=== PATIENT | female | born 1945 | race Two or more races ===

== ENCOUNTER 2022-12-19 05:30 | Day surgery (SDC) | payer OTHER ==
[~2022-12-19] VITALS: Ht 157.5 cm; Wt 81.6 kg
[~2022-12-19 05:30] MED LIST: AVAPRO300 MG PO; CLONAZEPAM0.5 MG PO; FENOFIBRATE150 MG PO; HYDROCHLOROTHIA25 MG PO; ISOSORBIDE DINIT5 MG PO; LANTUS SOL100 UNIT/1; LIPITOR40 MG PO; NORVASC5 MG PO
[2022-12-19] MEDS ORDERED: KETO10TA2 PO (09:42)
[2022-12-19] MEDS ORDERED: DERMOPLAST PAIN78 GM TOP (09:44)
[2022-12-19] MEDS ORDERED: TRAM1TAB98 PO (09:45)
== END 2022-12-19 13:15 | disposition home or self-care (01) ==
LOC: CIR.AMB 05:30
PROVIDERS: ATTEND Surgery
DX: D01.3 Carcinoma in situ of anus and anal canal (principal); K63.5 Polyp of colon; N81.6 Rectocele; K62.3 Rectal prolapse; Z88.2 Allergy status to sulfonamides; Z20.822 Contact with and (suspected) exposure to COVID-19; I10 Essential (primary) hypertension; E11.40 Type 2 diabetes mellitus with diabetic neuropathy, unspecified; Z79.4 Long term (current) use of insulin